=== PATIENT | female | born 1990 | race Caucasian/White ===

== ENCOUNTER 2019-02-19 09:55 | Emergency (ER) | payer OTHER ==
--- OUTSIDE RECORDS SUMMARY | 2019-02-19 10:07 | XMS REPORT | Continuity of Care Document ---
:1990 External Reference #:[id number] Author Name Deana Jones Care Team Providers Name Role Phone Toya Lovell MD Primary Care Physician Unavailable Payers Date Identification Numbers Payment Provider Subscriber Effective: 2016 Policy Number: [id number] [facility] Pam Qiu Expires: 2017 PayID: [id number] [address] [place] [address] Policy Number: [id number] Bradford Qiu Group Number: [id number] [address] PayID: [id number] [place] [address] Advance Directives Type Date Description Status Comment Other Directive 01/26/2017 health care proxy Current and Verified Problems Active Problems Provider Date Attention deficit hyperactivity disorder Cyndi Roth, N.P. Onset: 2011 Gastroesophageal reflux disease Cyndi Roth, N.P. 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 50mcg/Act needed Suspension Albenza 2 tablets po and 4tabs Cyndi Gutierrezradha, 05/02/2018 200mg Tablets repeat in 2 N.P. weeks Adderall XR one by mouth 30caps F90.9 Cyndi Gutierrezradha, 03/23/2018 30mg Caps daily N.P. ER 24HR Fluconazole one by mouth february 2tabs Cyndi Gutierrezradha, 02/07/2018 150mg repeat in 3 days N.P. Tablets as needed Orsythia take one tablet 3months Cyndi Ira, 03/18/2014 0.1-20mg-mcg by mouth daily N.P. Tablets History Medications Alesse-28 Take 1 Tablet By 84tabs Cyndi Ira, 12/12/2017 - Tablet Mouth Daily N.P. 02/03/2019 Loestrin 20 (21) Take one tablet by 21tabs Cyndi Ira, 12/21/2014 - mouth one time daily N.P. 10/23/2015 1-20mg-mcg Tablets Loestrin 20-21 one po daily 1tabs Cyndi Ira, 07/07/2013 - N.P. 03/18/2014 1-20mg-mcg Tablets Diflucan sig 1 po repeat in 3 2tabs 112.1 Lupe Tejeda, 09/30/2012 - 150mg Tablets days if needed M.D., FACP 10/24/2012 Ritalin one tablet bid 32tabs Cyndi Ira, 04/07/2012 - 20mg Tablets N.P. 07/26/2013 Ritalin LA 2 capsules daily on 16caps Lupe Tejeda, 04/05/2012 - 20mg Caps ER Wednesday and Wednesday M.D., FACP 04/07/2012 24HR Lotrisone apply externally 15gm 616.10 Lupe Tejeda, 10/20/2011 - 1-0.05% Cream bid-tid until M.D., FACP 10/24/2012 symptoms clear but not for greater than 2 weeks Diflucan sig 1 po repeat in 3 2tabs 112.1 Lupe Tejeda, 04/29/2011 - 150mg Tablets days if needed M.D., FACP 10/20/2011 Terazol 3 1 applicator 20gm Lupe Tejeda, 10/20/2010 - 0.8% Cream intravaginally cb Villeda, FACP 10/23/2010 for 3 nights Aviane Take One Tablet By 28tabs Cyndi Gutierrezradha, 10/02/2010 - 0.1-20mg-mcg Mouth Daily N.P. 07/07/2013 Tablets Ritalin 1 capsule daily 90caps Unknown - 20mg Caps ER 24HR 04/05/2012 Protonix 1 tablet 90tabs Unknown - 20mg Tablets DR 10/20/2011 Methylphenidate HCL ER 1 by mouth every day 90tabs Cyndi Ira, - code b N.P. 03/23/2018 54mg Tablets ER Nystop apply twice daily to 60gm Unknown - [id number] affected areas 10/24/2012 Powder Immunizations CPT Code Status Date Vaccine Lot # [id number] Given 07/31/2016 Influ Virus Vaccine, Quadrivalent, Split Virus, [place] [id number] [id number] Given 07/27/2014 Influenza Virus Vaccine, Quadrivalent, Split, [id number] Preservative Free 96250 Given 07/31/2013 Flu Vaccine Split Virus Preservative Free For [id number] Indiv 3Yr Older [id number] Given 07/29/2012 Fluzone Vaccine [id number] 64200 Given 07/27/2011 Influenza Virus 3Yrs & Over [id number] Given 10/20/2010 Influenza Virus 3Yrs & Over Vital Signs Date Vital Result Comment 02/03/2019 10:06am Height 62.75 inches 5'2.75" Weight 112.12 lb Heart Rate 93 /min BP Systolic 140 mmHg BP Diastolic 87 mmHg Body Temperature 98.7 F O2 % BldC Oximetry 96 % BMI (Body Mass Index) 20.0 kg/m2 03/23/2018 9:09am Height 62.75 inches 5'2.75" Weight 111.75 lb Heart Rate 110 /min BP Systolic 100 mmHg BP Diastolic 60 mmHg Body Temperature 97.4 F O2 % BldC Oximetry 99 % BMI (Body Mass Index) 20.0 kg/m2 12/24/2016 11:07am Height 62.75 inches 5'2.75" Weight 120.00 lb Heart Rate 84 /min BP Systolic Sitting 104 mmHg BP Diastolic Sitting 64 mmHg Body Temperature 97.9 F O2 % BldC Oximetry 97 % BMI (Body Mass Index) 21.4 kg/m2 10/16/2016 2:48pm Weight 119.00 lb Heart Rate 78 /min BP Systolic Sitting 118 mmHg BP Diastolic Sitting 70 mmHg Respiratory Rate 16 /min Body Temperature 98.6 F O2 % BldC Oximetry 99 % 10/23/2015 11:04am Height 62.75 inches 5'2.75" Weight 112.00 lb Heart Rate 69 /min BP Systolic Sitting 118 mmHg BP Diastolic Sitting 66 mmHg Body Temperature 98.1 F O2 % BldC Oximetry 98 % BMI (Body Mass Index) 20.0 kg/m2 10/08/2014 9:53am Height 62.75 inches 5'2.75" Weight 107.75 lb Heart Rate 90 /min BP Systolic Sitting 110 mmHg BP Diastolic Sitting 68 mmHg Body Temperature 98.6 F O2 % BldC Oximetry 97 % BMI (Body Mass Index) 19.2 kg/m2 12/25/2013 3:41pm Height 62.5 inches 5'2.50" Weight 105.75 lb Heart Rate 76 /min BP Systolic 98 mmHg BP Diastolic 68 mmHg Respiratory Rate 16 /min Body Temperature 98.7 F BMI (Body Mass Index) 19.0 kg/m2 10/24/2012 10:49am Height 62 inches 5'2" Weight 100.00 lb Heart Rate 68 /min BP Systolic Sitting 100 mmHg BP Diastolic Sitting 60 mmHg BMI (Body Mass Index) 18.3 kg/m2 09/30/2012 3:35pm Weight 105.00 lb Heart Rate 86 /min BP Systolic Sitting 112 mmHg BP Diastolic Sitting 60 mmHg Body Temperature 98.5 F 01/22/2012 9:07am Height 62.25 inches 5'2.25" Weight 108.50 lb Heart Rate 76 /min BP Systolic Sitting 102 mmHg BP Diastolic Sitting 64 mmHg BMI (Body Mass Index) 19.7 kg/m2 10/20/2011 8:55am Height 62.25 inches 5'2.25" Weight 108.00 lb Heart Rate 76 /min BP Systolic Sitting 98 mmHg BP Diastolic Sitting 68 mmHg BMI (Body Mass Index) 19.6 kg/m2 04/29/2011 9:45am Height 62.25 inches 5'2.25" Weight 104.00 lb Heart Rate 62 /min BP Systolic Sitting 90 mmHg BP Diastolic Sitting 64 mmHg Body Temperature 97.5 F BMI (Body Mass Index) 18.9 kg/m2 12/25/2010 10:38am Heart Rate 68 /min BP Systolic 118 mmHg BP Diastolic 62 mmHg Body Temperature 98.6 F 10/20/2010 10:10am Height 62.5 inches 5'2.50" Weight 95.00 lb Heart Rate 78 /min BP Systolic 110 mmHg BP Diastolic 76 mmHg BMI (Body Mass Index) 17.1 kg/m2 Results Test Date Facility Test Result H/L Range Note GC/Chlamydia 03/23/2018 [facility] Chlamydia Negative Negative Amplified Rna [address] [place] [address] [phone] Neisseria gonorrhoeae (GC) Rna Negative Negative Laboratory test 12/24/2016 [facility] Cytology SEE RESULT [address] [place] [address] [phone] Laboratory test 10/16/2016 [facility] TSH (Thyroid Stim 1.65 N 0.[address] Horm) mcIU/mL -5.6 [place] [address] [phone] Lipid Profile 10/04/2014 [facility] Triglycerides 90 mg/dL N 2, 3 (Trig/Chol/HDL) [address] [place] [address] [phone] Cholesterol 191 mg/dL N 4 HDL Cholesterol 63.1 mg/dL N 5 LDL Cholesterol 110 mg/dL N 6 Laboratory test 12/25/2013 [facility] Cytology RUN DATE: [address] 12/26/ <[place] [address] NOTE> [phone] GC/Chlamydia 12/25/2013 [facility] GC/Chlamydia (SEE NOTE) 8 Amplified Rna [address] [place] [address] [phone] GC/Chlamydia 10/24/2012 [facility] GC/Chlamydia (SEE NOTE) 9 Amplified Rna [address] [place] [address] [phone] Laboratory test 10/24/2012 [facility] Cytology RUN DATE: [address] 10/25/ <[place] [address] NOTE> [phone] Laboratory test 01/23/2012 [facility] Glucose 83 mg/dL 70- [address] [place] [address] [phone] Laboratory test 10/20/2011 [facility] Cytology [address] ---- <[place] [address] NOTE> [phone] 1 SEE RESULT BELOW Name: PAM QIU : [address]: Cyndi Roth NP Acct: [id number] Unit: [id number] AGE: 26 Location: [facility] Re12/24/16 SEX: F Status: REG REF SPEC: [id number] ANGELITA: 12/24/16-1243 [facility] DR: Cyndi Roth NP REQ: [id number] RECD: 12/24/166044 STATUS: SOUT _ ORDERED: IMAGE ANALYSIS COMMENTS: [id number] FINAL DIAGNOSIS Negative for Intraepithelial lesion or Malignancy A. Ectocervical/Endocervical Specimen Adequacy: Satisfactory of evaluation Transformation zone component identified Patient Information: HPV: Thin Layer Pap Test w/reflex to high risk HPV RNA testing when ASCUS Actual Specimen Date: 12/24/16 LMP If Unknown: 2 wks ago Spec Date if unknown: 2013 ?: N Post Menopausal?: N Hysterectomy?: N Previous Abnormal Pap Smears?:N Signed (signature on file) SELENE Goins (ASCP) 12/25 1317 This Pap test was evaluated with the assistance of the Friend Traveler[employer] Test Imaging System. Due to cytologic findings at the diesel truck technician microscope, comprehensive manual rescreening by a Set Up Mechanic Heading Machines may be required. The Pap Smear is a screening test designed to aid in the detection of premalignant and malignant conditions of the uterine cervix. It is not a diagnostic procedure and should not be used as the sole means of detecting cervical cancer. Both false- positive and false- negative reports do occur. Depending on your risk status, a Pap smear should be obtained and evaluated every 1-3 years. END OF REPORT * ML=Testing performed at Main Lab DEPARTMENT OF PATHOLOGY, [facility] [place], [place] [address] Darin Zavala M.D. Director [facility] # [id number] 2 PT IS FASTING 3 Desirable <150 Borderline high 150-199 High 200-499 Very High >500 4 Desirable <200 Borderline high 200-239 High >239 5 Low <40 Desirable: 40-60 High: >60 6 Desirable <100 Near Optimal 100-129 Borderline high 130-159 High 160-189 Very High >189 7 RUN DATE: 12/26/13 [facility] LAB LIVE PAGE 1 RUN TIME: 1251 [facility] [employer] [employer] [place], [place] [address] Specimen Inquiry Name: PAM QIU : [address]: Cyndi Roth NP Acct: [id number] Unit: [id number] AGE: 23 Location: [facility] Re12/25/13 SEX: F Status: REG REF SPEC: [id number] ANGELITA: 12/25/13-[address]: Cyndi Roth NP REQ: [id number] RECD: 12/25/13 STATUS: SOUT _ ORDERED: IMAGE ANALYSIS FINAL DIAGNOSIS Negative for Intraepithelial lesion or Malignancy A. Ectocervical/Endocervical Specimen Adequacy: Satisfactory of evaluation Transformation zone component identified Patient Information: HPV: Thin Layer Pap Test w/reflex to high risk HPV DNA testing when ASCUS Actual Specimen Date: 12/25/13 Last Menstrual Date: 12/18/13 Signed (signature on file) SELENE Goins (ASCP) 12/26 1251 This Pap test was evaluated with the assistance of the Friend Traveler[employer] Test Imaging System. Due to cytologic findings at the diesel truck technician microscope, comprehensive manual rescreening by a Set Up Mechanic Heading Machines may be required. The Pap Smear is a screening test designed to aid in the detection of premalignant and malignant conditions of the uterine cervix. It is not a diagnostic procedure and should not be used as the sole means of detecting cervical cancer. Both false- positive and false- negative reports do occur. Depending on your risk status, a Pap smear shoudl be obtained and evaluated every 1-3 years. END OF REPORT * ML=Testing performed at Main Lab DEPARTMENT OF PATHOLOGY, [facility] [place], [place] [address] Darin Zavala M.D. Director [facility] Permit #[id number] RUN DATE: 12/29/13 [facility] [place] [facility] LAB LIVE PAGE 1 RUN TIME: 1406 [facility] [place], [place] [address] Specimen Inquiry Name: PAM QIU : [address]: Cyndi Roth NP Acct: [id number] Unit: [id number] AGE: 23 Location: [facility] Re12/25/13 SEX: F Status: REG REF SPEC: [id number] ANGELITA: 12/25/13-[address]: Cyndi Roth NP REQ: [id number] RECD: 12/25/13 STATUS: COMP _ SOURCE: THIN SPDESC: ORDERED: GC/Chlam RNA QUERIES: Medent Number [id number] Procedure Result Verified Site Chlamydia Trachomatis RNA Final 12/29/13- 1406 ML NEGATIVE for Chlamydia trachomatis rRNA GC (N. gonorrhoeae) RNA Final 12/29/13- 1356 ML NEGATIVE for Neisseria gonorrhoeae rRNA A negative result does not preclude the presence of a C. trachomatis or N. gonorrhoeae infection because results are dependent on adequate specimen collection, absence of inhibitors, and sufficient rRNA to be detected. Test results may be affected by improper specimen collection, improper storage, technical error, or specimen mixup. Limitations of the Procedure: The Aptima Combo 2 Assay is not intended for the evaluation of suspected sexual abuse or for other medico-legal indications. For those patients for whom a false positive result may have adverse psychosocial impact, the CDC recommends retesting by a method using an alternate technology. Therapeutic failure or success cannot be determined with the Aptima Combo 2 Assay since nucleic acid may persist following appropriate antimicrobial therapy. Results from the Aptima Combo 2 Assay should be interpreted in conjunction with other laboratory and clinical data available to the clinican. CONTINUED ON NEXT PAGE * ML=Testing performed at [facility] Lab DEPARTMENT OF PATHOLOGY, [address] [place] [address] Darin Zavala M.D. Director [facility] Permit #[id number] RUN DATE: 12/29/13 [facility] [place] [facility] LAB LIVE PAGE 2 RUN TIME: [address] [place] [address] Specimen Inquiry Patient: PAM QIU [id number] (Continued) Specimen: [id number] Collected: 12/25/13 Received: 12/25/13 (Continued) Procedure Result Verified Site GC (N. gonorrhoeae) RNA Final (continued) 12/29/13- 1356 Performance characteristics for detecting C. trachomatis and N. gonorrhoeae are derived from high prevalence populations. Positive results in low prevalence populations should be interpreted carefully with the understanding that the likelihood of a false positive may be higher than a true positive. END OF REPORT * ML=Testing performed at Main Lab DEPARTMENT OF PATHOLOGY, [facility] [place], [place] [address] Darin Zavala M.D. Director [facility] Permit #[id number] RUN DATE: 10/28/12 [facility] [place] [facility] LAB LIVE PAGE 1 RUN TIME: 9078 [facility] [place], [place] [address] Specimen Inquiry Name: PAM QIU : [address]: Cyndi Roth Acct: [id number] Unit: [id number] AGE: 22 Location: [facility] Re10/24/12 SEX: F Status: REG REF SPEC: [id number] ANGELITA: 10/24/12-[address]: IraCyndi REQ: [id number] RECD: 10/24/12 STATUS: COMP _ SOURCE: [facility]: ORDERED: GC/Chlam RNA QUERIES: Medent Number [id number] Procedure Result Verified Site Chlamydia Trachomatis RNA Final 10/28/12- 1448 ML NEGATIVE for Chlamydia trachomatis rRNA GC (N. gonorrhoeae) RNA Final 10/28/12- 1448 ML NEGATIVE for Neisseria gonorrhoeae rRNA A negative result does not preclude the presence of a C. trachomatis or N. gonorrhoeae infection because results are dependent on adequate specimen collection, absence of inhibitors, and sufficient rRNA to be detected. Test results may be affected by improper specimen collection, improper storage, technical error, or specimen mixup. Limitations of the Procedure: The Aptima Combo 2 Assay is not intended for the evaluation of suspected sexual abuse or for other medico-legal indications. For those patients for whom a false positive result may have adverse psychosocial impact, the [facility] recommends retesting by a method using an alternate technology. Therapeutic failure or success cannot be determined with the Aptima Combo 2 Assay since nucleic acid may persist following appropriate antimicrobial therapy. Results from the Aptima Combo 2 Assay should be interpreted in conjunction with other laboratory and clinical data available to the clinican. CONTINUED ON NEXT PAGE * ML=Testing performed at Main Lab DEPARTMENT OF PATHOLOGY, [facility] [place], [place] [address] Darin Zavala M.D. Director [facility] Permit #[id number] RUN DATE: 10/28/12 [facility] [place] [facility] LAB LIVE PAGE 2 RUN TIME: [address] [place] [address] Specimen Inquiry Patient: PAM QIU [id number] (Continued) Specimen: [id number] Collected: 10/24/12-1253 Received: 10/24/12 (Continued) Procedure Result Verified Site GC (N. gonorrhoeae) RNA Final (continued) 10/28/12- 1448 Performance characteristics for detecting C. trachomatis and N. gonorrhoeae are derived from high prevalence populations. Positive results in low prevalence populations should be interpreted carefully with the understanding that the likelihood of a false positive may be higher than a true positive. END OF REPORT * ML=Testing performed at Main Lab DEPARTMENT OF PATHOLOGY, [facility] [place] [address] Darin Zavala M.D. Director [facility] Permit #[id number] RUN DATE: 10/25/12 [facility] [place] [facility] LAB LIVE PAGE 1 RUN TIME: 2346 [facility] [employer] [place], [place] [address] Specimen Inquiry Name: PAM QIU : [address]: Cyndi Roth Acct: [id number] Unit: [id number] AGE: 22 Location: [facility] Re10/24/12 SEX: F Status: REG REF SPEC: [id number] ANGELITA: 10/24/12-1254 [facility] DR: Cyndi Roth REQ: [id number] RECD: 10/25/12 STATUS: SOUT _ ORDERED: IMAGE ANALYSIS FINAL DIAGNOSIS Negative for Intraepithelial lesion or Malignancy A. Ectocervical/Endocervical Specimen Adequacy: Satisfactory of evaluation Transformation zone component identified Patient Information: HPV: Thin Layer Pap Test w/reflex to high risk HPV DNA testing when ASCUS Actual Specimen Date: 10/24/12 Last Menstrual Date: 09/23/12 Spec Date if unknown: 10/2011 Cautery: N IUD: N Lesion, grossly demonstrate: N ?: N Post Menopausal?: N Hysterectomy?: N Previous Abnormal Pap Smears?:N Signed (signature on file) SELENE Goins (ASCP) 10/25 9095 This Pap test was evaluated with the assistance of the HemaSourcep Test Imaging System. Due to cytologic findings at the diesel truck technician microscope, comprehensive manual rescreening by a Set Up Mechanic Heading Machines may be required. The Pap Smear is a screening test designed to aid in the detection of premalignant and malignant conditions of the uterine cervix. It is not a diagnostic procedure and should not be used as the sole means of detecting cervical cancer. Both false- positive and false- negative reports do occur. Depending on your risk status, a Pap smear shoudl be obtained and evaluated every 1-3 years. END OF REPORT * ML=Testing performed at Main Lab DEPARTMENT OF PATHOLOGY, [address] [place] [address] Darin Zavala M.D. Director [facility] Permit #[id number] ---- RUN DATE: 10/21/11 [facility] NMI LIVE PAGE 1 RUN TIME: 1032 Specimen Inquiry RUN USER: INTERFACE -- Name: TIFFANIE QIUSA Tomas Jolly#: [id number] Status: REG REF Re10/20/11 Age/Sex: 21/F Unit#: [id number] Location: [facility] : [birth year] -- Specimen: [id number] SOUT Spec Date: 10/20/[address]: Cyndi MCINTOSH Spec Type: CYTOLOGY Received: 10/20/11-1315 Copies to: SOURCE ECTOCERVICAL/ENDOCERVICAL Thin Prep with Reflex HPV Test PATIENT INFORMATION ACTUAL COLLECTION DATE: 10/20/11 ? No POST MENOPAUSAL? No HYSTERECTOMY? No PREVIOUS ABNORMAL PAP SMEARS No LAST MENSTRUAL PERIOD: 09/30/11 ADEQUACY OF SPECIMEN Satisfactory for evaluation * Transformation zone component identified * DIAGNOSIS NEGATIVE FOR INTRAEPITHELIAL LESION OR MALIGNANCY * This Pap test was evaluated with the assistance of the Friend TravelerPrep Pap Test Imaging System. The Pap Smear is a screening test designed to aid in the detection of premalign ant and malignant conditions of the uterine cervix. It is not a diagnostic procedure a nd should not be used as the sole means of detecting cervical cancer. Both false- positiv e and false-negative reports do occur. Depending on your risk status, a Pap smear rose uld be obtained and evaluated every one to three years. Final Interpretation electronically signed by: Geneva MELGOZA(ASC) 10/21/11 103 2 -- -- DEPARTMENT OF PATHOLOGY, [address] [place] [address] [facility] Permit #[id number] Darin Zavala M.D. Director Janeen Torrez M.D. Associate Professor Of Biology Dir marva -- Procedures Date Code Description Status 05/30/2014 733323846 Diabetic Retinal Eye Exam Completed 10/24/2012 96523 EKG Tracing & Interpretation Completed Encounters Type Date Location Provider Dx Diagnosis Office Visit 03/23/2018 [facility] Cyndi Roth, Z00.00 Encntr for general 9:20a Medicine N.P. adult medical exam w/o abnormal findings F90.9 Attention-deficit hyperactivity disorder, unspecified type Z11.3 Encntr screen for infections w sexl mode of transmiss B37.3 Candidiasis of vulva and vagina Office Visit 12/24/2016 11:00a [facility] Cyndi Roth Z00.00 Encntr for Medicine N.P. general adult medical exam w/o abnormal findings F90.9 Attention-deficit hyperactivity disorder, unspecified type Z12.4 Encounter for screening for malignant neoplasm of cervix Office Visit 10/16/2016 2:40p [facility] Cyndi Roth, R10.30 Lower abdominal Medicine N.P. pain, unspecified N93.8 Other specified abnormal uterine and vaginal bleeding Office Visit 10/23/2015 11:00a [facility] Aydin Cardoso NP Z00.00 Encntr for Medicine general adult medical exam w/o abnormal findings F90.9 Attention-deficit hyperactivity disorder, unspecified type Office Visit 10/08/2014 10:00a [facility] Leti Cardoso V70.0 Examination General Medicine [employer] OFFICER Medical Routine AT Health Care Facility 314.01 Attention Deficit Disorder W/ Hyperactivity Office Visit 12/25/2013 3:20p [facility] Leti Roth V70.0 Examination Medicine N.P. General Medical Routine AT Health Care Facility V72.31 Routine Event Management Consultant Examination 314.01 Attention Deficit Disorder W/ Hyperactivity Office Visit 10/24/2012 10:40a [facility] Leti Roth V70.0 Examination Medicine N.P. General Medical Routine AT Health Care Facility V72.31 Routine Event Management Consultant Examination 314.01 Attention Deficit Disorder W/ Hyperactivity Office Visit 09/30/2012 [facility] Sonia Cardozo, 112.1 Candidiasis The 3:30p Medicine N.P. Vulva & Vagina Office Visit 01/22/2012 [facility] Cyndi Roth, 616.10 Vaginitis & 9:00a Medicine N.P. Vulvovaginitis Unspec Office Visit 10/20/2011 [facility] Cyndi Roth, V70.0 Examination General 9:00a Medicine N.P. Medical Routine AT [facility] V72.31 Routine Event Management Consultant Examination 314.01 Attention Deficit Disorder W/ Hyperactivity 530.81 Esophageal Reflux 616.10 Vaginitis & Vulvovaginitis Unspec Office Visit 04/29/2011 DO Not Use Cyndi 112.1 Candidiasis The 9:40a Hardik-Emily Roth, N.P. Vulva & Vagina Office Visit 12/25/2010 DO Not Use Lupe Tejeda, 616.10 Vaginitis & 10:30a Escobar Villeda, FACP Vulvovaginitis Unspec Office Visit 10/20/2010 DO Not Use Cyndi V72.31 Routine Event Management Consultant 10:15a Hardik-Emily Roth, N.P. Examination V04.81 Need For Prophylactic Vaccination & Inoculation/Influenza Office Visit 10/07/2009 DO Not Use Cyndi Roth, V72.31 Routine Event Management Consultant 11:00a Hardik-Emily N.P. Examination Plan of Treatment 02/03/2019 - Cyndi Roth, N.P.H92.02 Otalgia, left earNew Medication: Fluticasone Propionate 50 mcg/Act - 2 sprays each nostril daily as neededComments:You have eustachian tube dysfunction: I have prescribed a steroid nasal spray, Fluticasone. Use 2 inhalations in each nostril, once daily until you feel better. If after 2 weeks your symptoms do not resolve, please contact the office and I will generate a referral to an ENT specialist.G44.209 Tension-type headache, unspecified, not intractableComments:You have a tension type headache. I suggest you a ply heat to your neck and try and relax your neck and upper back. You may find taking Ibuprofen helpful.
--- NOTE | 2019-02-19 10:46 | UC ---
Cardiac HPI - HPI Summary HPI Summary: 28-year-old woman comes in with a chief complaint of chest pain. Started about 5:30 this morning when she was in bed of sudden onset. It's sternal. No radiation. Pain is worse with laying down or standing up. Denies any abdominal pain. No nausea. Patient reports she often has sweaty hands and feet. No shortness of breath. Patient reports that last evening when she went to bed her heart was racing. She feels like she did not sleep all night long because her heart racing. No history of pulmonary embolus or deep venous thrombosis. No recent travel no recent surgeries. She is on control pills. No complaint of pedal edema or calf pain. For about 3 weeks patient's been having for about 3 weeks patient's been having ear pain and headaches she's seeing an ENT for this and considering imaging. - History of Current Complaint Chief Complaint: UCChestPain Stated Complaint: HEART RACING Time Seen by Provider: 02/19/19 10:17 Hx Last Menstrual Period: 02/12/19 Pain Intensity: 7 - Allergy/Home Medications Allergies/Adverse Reactions: Allergies Allergy/AdvReac Type Severity Reaction Status Date / Time No Known Allergies Allergy Verified 02/19/19 10:03 Home Medications: Home Medications Control 1 tab PO DAILY 02/19/19 [History] Dextroamphetamine/Amphetamine [Adderall 30 mg-] 1 tab PO DAILY 02/19/19 [ History Confirmed 02/19/19] Ibuprofen TAB* [Advil TAB*] 200 mg PO Q6H PRN 02/19/19 [History Confirmed ] Loratadine 10 mg PO DAILY 02/19/19 [History Confirmed 02/19/19] PMH/Surg Hx/FS Hx/Imm Hx Previously Healthy: Yes Other Psychological History: ADHD - Surgical History Surgical History: None - Family History Known Family History: Positive: Non-Contributory - Social History Alcohol Use: Daily Alcohol Amount: 1 glass of wine with dinner Substance Use Type: None Smoking Status (MU): Never Smoked Tobacco Review of Systems All Other Systems Reviewed And Are Negative: Yes Constitutional: Positive: Other - ANXIETY Skin: Positive: Negative Eyes: Positive: Negative ENT: Positive: Ear Ache - SEE HPI Respiratory: Positive: Negative Cardiovascular: Positive: Palpitations, Chest Pain Gastrointestinal: Positive: Negative Motor: Positive: Negative Neurovascular: Positive: Negative Musculoskeletal: Positive: Negative. Negative: Calf Tenderness Neurological: Positive: Headache Psychological: Positive: Anxious Is Patient Immunocompromised?: No Physical Exam Triage Information Reviewed: Yes Appearance: Well-Appearing, No Pain Distress, Well-Nourished, Other: - ANXIOUS Vital Signs: Initial Vital Signs Temp 98.6 F 02/19/19 10:06 Pulse 83 02/19/19 10:06 Resp 18 02/19/19 10:06 BP 137/92 02/19/19 10:06 Pulse Ox 97 02/19/19 10:06 Vital Signs Reviewed: Yes Eye Exam: Normal Eyes: Positive: Conjunctiva Clear Neck: Positive: Supple Respiratory: Positive: Lungs clear, Normal breath sounds, No respiratory distress, Other: - STERNUM TENDER TO PALPATION Cardiovascular: Positive: RRR Abdomen Description: Positive: Nontender, Soft Musculoskeletal Exam: Normal Musculoskeletal: Positive: Strength Intact, ROM Intact, No Edema, Other: - NO CALF TENDERNESS TO PALPATION Neurological: Positive: Alert, Muscle Tone Normal Psychological: Positive: Age Appropriate Behavior, Other: - ANXIOUS Skin Exam: Normal - Assessment/Plan Course Of Treatment: We discussed the EKG results with the patient and her mother. I do not see any signs of ischemia or ectopy. Rate was 82 beats for minute. Overall vital signs normal. Given her age EKG it's unlikely that it's a cardiac cause although we cannot rule out pericarditis. Also low risk for pulmonary embolism however we are unable to rule that out. We discussed further evaluation in the emergency department. Patient prefers further evaluation in the emergency department and is going over by POV. - Clinical Impression Provider Diagnosis: Chest pain, Palpitations Discharge - Sign-Out/Discharge Documenting (check all that apply): Patient Departure All imaging exams completed and their final reports reviewed: No Studies - Discharge Plan Condition: Stable Disposition: HOME-RECOMMEND TO ED Referrals: Toya Lovell MD [Primary Care Provider] - Additional Instructions: GO DIRECTLY TO THE EMERGENCY DEPARTMENT FOR FURTHER EVALUATION. - Billing Disposition and Condition Condition: STABLE Disposition: Home-Recommend to ED
[2019-02-19 10:57] VITALS: BP 122/79
== END 2019-02-19 10:57 | disposition home health service (06) ==
LOC: UCEAST 09:55
DX: R07.89 Other chest pain (principal); R00.2 Palpitations; F90.9 Attention-deficit hyperactivity disorder, unspecified type; Z79.3 Long term (current) use of hormonal contraceptives
CPT/HCPCS: 99212; G0463

== ENCOUNTER 2019-02-19 11:11 | Emergency (ER) | payer OTHER ==
--- NOTE | 2019-02-19 11:30 | ED ---
HPI Chest Pain - HPI Summary HPI Summary: This patient is a 28 year old Female presenting to [facility] with a chief complaint of chest pain since 6 hours ago. The patient reports this started with palpitations when she tried to go to sleep last night which then progressed to chest pain after she attempted breathing exercises, which did not help. She states it then felt like "someone punched her' in the mid-sternal area. The patient states she never went to sleep. She states she initially rates her pain 8/10 in severity and describes it as a sharp pain but the pain has now resolved to a 3/10 since one hour ago. She states the pain radiates slightly to her lower -sternal area. She denies SOB, N/V/D, Cardiac Hx. She states she has been coughing due to a sinus infection. She saw an ENT specialist for this and the ENT stated to wait a week before getting a CXR. Her last LNMP was last week. The patient does not smoke. She has a family Hx of HLN and HLD. - History of Current Complaint Chief Complaint: EDChestPainROMI Time Seen by Provider: 02/19/19 11:21 Hx Obtained From: Patient Hx Last Menstrual Period: 02/12/19 Onset/Duration: Started Hours Ago Timing: Constant Initial Severity: Severe Current Severity: Mild Pain Intensity: 3 Pain Scale Used: 0-10 Numeric Chest Pain Location: Mid Sternal, Lower Sternal Chest Pain Radiates: Yes Character: Sharp/Stabbing - Allergy/Home Medications Allergies/Adverse Reactions: Allergies Allergy/AdvReac Type Severity Reaction Status Date / Time No Known Allergies Allergy Verified 02/19/19 11:13 PMH/Surg Hx/FS Hx/Imm Hx Endocrine/Hematology History: Denies: Hx Blood Disorders Cardiovascular History: Denies: Hx Hypertension Infectious Disease History: No Infectious Disease History: Denies: Traveled Outside the [place] in Last 30 Days - Family History Known Family History: Positive: Hypertension, Other - HLD - Social History Alcohol Use: Daily Alcohol Amount: 1 glass of wine with dinner Substance Use Type: Reports: None Smoking Status (MU): Never Smoked Tobacco Review of Systems Positive: Palpitations, Chest Pain Positive: Cough. Negative: Shortness Of Breath Negative: Vomiting, Diarrhea, Nausea All Other Systems Reviewed And Are Negative: Yes Physical Exam - Summary Physical Exam Summary: VITAL SIGNS: Reviewed. GENERAL: Patient is a well-developed and nourished FEMALE who is lying comfortable in the stretcher. Patient is not in any acute respiratory distress. HEAD AND FACE: No signs of trauma. No ecchymosis, hematomas or skull depressions. No sinus tenderness. EYES: PERRLA, EOMI x 2, No injected conjunctiva, no nystagmus. EARS: Hearing grossly intact. Ear canals and tympanic membranes are within normal limits. MOUTH: Oropharynx within normal limits. NECK: Supple, trachea is midline, no adenopathy, no JVD, no carotid bruit, no c- spine tenderness, neck with full ROM. CHEST: Symmetric, reproducible tenderness. LUNGS: Clear to auscultation bilaterally. No wheezing or crackles. CVS: Regular rate and rhythm, S1 and S2 present, no murmurs or gallops appreciated. ABDOMEN: Soft, non-tender. No signs of distention. No rebound no guarding, and no masses palpated. Bowel sounds are normal. EXTREMITIES: FROM in all major joints, no edema, no cyanosis or clubbing. NEURO: Alert and oriented x 3. No acute neurological deficits. Speech is normal and follows commands. SKIN: Dry and warm Triage Information Reviewed: Yes Vital Signs On Initial Exam: Initial Vitals Temp Pulse Resp BP Pulse Ox 97.1 F 78 18 116/94 99 02/19/19 11:13 02/19/19 11:13 02/19/19 11:13 02/19/19 11:13 02/19/19 11:13 Vital Signs Reviewed: Yes Diagnostics - Vital Signs Vital Signs Temp Pulse Resp BP Pulse Ox 02/19/19 11:13 97.1 F 78 18 116/94 99 - Laboratory Result Diagrams: 02/19/19 11:36 02/19/19 11:36 Lab Statement: Any lab studies that have been ordered have been reviewed, and results considered in the medical decision making process. - Radiology CXR Radiology Interpretation Completed By: Radiologist Summary of Radiographic Findings: No radiographic evidence for acute cardiopulmonary disease. ED Provider has reviewed this report. - EKG 1141 Cardiac Rate: NL - [address] Segment: Normal Ectopy: None Summary of EKG Findings: No ST-Elevations, Normal [place]. Re-Evaluation - Re-Evaluation First Eval Re-Evaluation Time: 14:04 Comment: Discussed results and plan for discharge with patient. Chest Pain Course/Dx - Course Assessment/Plan: This patient is a 20-year-old female who presents to the emergency department with a chief complaint of having chest pain. She reports that this morning she woke up with severe chest pain in the center of the chest which she was approximately 8 out of 10. She reports that the pain is as if someone punched her in his chest. The pain has improved to approximately 5 out of 10. She reports that the pain is increased after palpation. She has no history of cardiac muscular disease, denies any hypertension diabetes or high cholesterol. She denies any nausea vomiting dizziness or diaphoresis. The patient was placed in a cardiac sonographer, IV access was obtained. EKG normal sinus rhythm without any ST elevations. Has a normal axis. Blood test results without any significant abnormality. First troponin is 0.00, beta hCG is negative. Chest x-ray impression: No radiographic evidence for acute cardiopulmonary disease. In the ED course the patient was given Toradol for the pain. D-dimer is also less than 200 therefore I have no suspicion for pulmonary embolism. The heart score is equal to 1 therefore at very low suspicion for acute coronary syndrome. The patient also has had a productive chest pain at palpation and she has history of sinusitis therefore I believe that the patient may have a noncardiac chest pain. Therefore the patient will be discharged home with follow-up with primary care physician. The patient is hemodynamically stable alert and oriented 3. Patient reports that all symptoms have resolved. Because the patient has no significant comorbidities and no family history of cardiovascular disease at his age the patient will be discharged home with follow up of PMD. I discussed all the findings and test results with the patient. Patient was instructed to return to the emergency room immediately if any of the symptoms return or worsens. Patient understands and agrees. Plan of care was discussed with the patient and patient understands and agrees. All questions were answered at patient satisfaction. There were no further complaints or concerns. PE before discharge: CVS: S1 and S2 present. No murmurs appreciated. Abdominal exam before discharge: Soft, non- tender. No signs of distention. No rebound no guarding, and no masses palpated. Bowel sounds are normal. Patient is alert and oriented x 3. Patient is hemodynamically stable. - Chest Pain Differential Diagnosis/HQI/PQRI: Acute [place], ACS, Angina, CHF, Chest Wall, GI Disease, Lower Respiratory Infection - Diagnoses Provider Diagnoses: Atypical chest pain Discharge - Sign-Out/Discharge Documenting (check all that apply): Patient Departure - Discharge Patient Received Moderate/Deep Sedation with Procedure: No - Discharge Plan Condition: Stable Disposition: HOME Patient Education Materials: Chest Pain (ED) Referrals: Cyndi Roth NP [Primary Care Provider] - 3 Days Additional Instructions: Return to ED with any new or worsening symptoms. - Billing Disposition and Condition Condition: STABLE Disposition: Home - Attestation Statements Document Initiated by Damion: Yes Documenting Scribe: Duncan Ahuja Provider For Whom Damion is Documenting (Include Credential): Forrest Duenas MD Scribe Attestation: Duncan Her scribed for Forrest Duenas MD on 02/19/19 at 2059. Scribe Documentation Reviewed: Yes Provider Attestation: The documentation as recorded by the Duncan wilkes accurately reflects the service I personally performed and the decisions made by , Forrest Duenas MD Status of Scribe Document: Viewed
[2019-02-19 12:17] LABS: ABS Eosinophils 0.1 10^3/ul (0-0.6); ABS Lymphocytes 1.1 10^3/ul (1.0-4.8); ABS Monocytes 0.3 10^3/ul (0-0.8); ABS Neutrophils 2.6 10^3/ul (1.5-7.7); Eosinophil % 1.8 %; Hematocrit 43 % (35-47); Hemoglobin 15.1 g/dL (12.0-16.0); Mean Corpuscular HGB Conc 35 g/dL (31-36); Mean Corpuscular Hemoglobin 34 pg (27-31); Mean Corpuscular Volume 98 fL (80-97); Mean Platelet Volume 7.3 fL (7.4-10.4); Nucleated Red Blood Cells % 0.1; Platelet Count 250 10^3/uL (150-450); Red Blood Count 4.44 10^6 /uL (3.70-4.87); Red Cell Distribution Width 12 % (10.5-15); White Blood Count 4.1 10^3/uL (3.5-10.8)
[2019-02-19 12:29] LABS: ALT 18 U/L (7-52); AST 22 U/L (13-39); Albumin 4.6 g/dL (3.2-5.2); Albumin/Globulin Ratio 1.6 (1-3); Alkaline Phosphatase 46 U/L (34-104); Anion Gap 8 mmol/L (2-11); BUN/Creatinine Ratio 11.1 (8-20); Blood Urea Nitrogen 10 mg/dL (6-24); CO2 Carbon Dioxide 24 mmol/L (22-32); Calcium 9.6 mg/dL (8.6-10.3); Chloride 106 mmol/L (101-111); Creatine Kinase 130 U/L (10-223); EGFR African American 90.2 (>60); EGFR Non-African American 74.6 (>60); Globulin 2.9 g/dL (2-4); Glucose 98 mg/dL (70-100); Potassium 3.9 mmol/L (3.5-5.0); Sodium 138 mmol/L (135-145); Total Protein 7.5 g/dL (6.4-8.9)
[2019-02-19 12:37] LABS: HCG Pregnancy < 0.60 mIU/mL
[2019-02-19] MEDS ORDERED: Ketorolac INJ* 30 MG/ML 1 ML VIAL IV PUSH ONE (12:45)
[2019-02-19 12:59] LABS: Digoxin < 0.3 ng/ml (0.8-2.0)
[2019-02-19 13:14] LABS: TSH (Thyroid Stimulating Horm) 1.77 mcIU/mL (0.34-5.60)
[2019-02-19 14:56] VITALS: BP 132/78
== END 2019-02-19 15:03 | disposition home or self-care (01) ==
LOC: ED 11:11
DX: R07.89 Other chest pain (principal); Z79.899 Other long term (current) drug therapy
CPT/HCPCS: 36415; 71046; 80053; 80162; 82550; 82553; 83605; 83880; 84443; 84484; 84702; 85025; 85379; 93005; 96374; 99283; J1885

== ENCOUNTER 2019-07-15 09:41 | Emergency (ER) | payer OTHER ==
--- OUTSIDE RECORDS SUMMARY | 2019-07-15 09:47 | XMS REPORT | Continuity of Care Document ---
:1990 External Reference #:[id number] Author Name Jovanna Dejesus NP (transmitted by agent of provider Abigail Medrano) Address [address] [place] [address] Care Team Providers Name Role Phone Cyndi Roth NP - Family Care Team Information Temple Marker [phone] Lupe Tejeda MD - Internal Medicine Care Team Information Temple Marker [phone] Problems Active Problems Provider Date Attention deficit hyperactivity disorder Cyndi Roth, N.PJaxon Onset: 2011 Gastroesophageal reflux disease Cyndi Roth N.PJaxon Onset: 10/20/2011 Social History Type Date Description Comments Sex Unknown ETOH Use Currently consumes 1 - 3 every other alcohol day Tobacco Use Start: Unknown Patient has never smoked Recreational Drug Use Denies Drug Use Smoking Status Reviewed: 07/10/19 Patient has never smoked Exercise Type/Frequency Exercises regularly 2 - 7 days weekly Allergies, Adverse Reactions, Alerts Active Allergies Reaction Severity Comments Date Ketorolac Tromethamine dizziness and pale 06/12/2019 Inactive Allergies No Known Drug Allergy 10/14/2010 Medications Active Medications SIG Qnty Indications Ordering Date Provider Omeprazole 1 by mouth 90caps Jovanna Dejesus NP 06/12/[address] every day Methylphenidate take 1 a day 30tabs F90.9 Aydin Cardoso NP 03/20/2019 Hydrochloride ER in the am 36mg Tablets ER Orsythia take one 3months Aydin Cardoso NP 03/18/2014 0.1-20mg-mcg Tablets tablet by mouth daily History Medications Fluconazole one by mouth 2tabs Cyndi Roth 05/09/2019 - 150mg Tablets may repeat in 3 N.P. 02/10/2019 days as needed Methylphenidate one by mouth 30tabs F90.9 Edna Kraft MD 03/20/2019 - Hydrochloride ER daily 03/20/2019 54mg Tablets ER Fluticasone Propionate 2 sprays each 48gm H92.02 Cyndi Roth, 2018 - nostril daily N.P. 03/31/2019 50mcg/Act Suspension as needed Immunizations CPT Code Status Date Vaccine Lot # [id number] Given 07/01/2019 Influenza Virus Vaccine, Quadrivalent, Split, Preservative Free 51234 Given 07/31/2016 Influ Virus Vaccine, Quadrivalent, Split Virus, [id number] [address] Given 07/27/2014 Influenza Virus Vaccine, Quadrivalent, Split, [id number] Preservative Free 96433 Given 07/31/2013 Flu Vaccine Split Virus Preservative Free For [id number] Indiv 3Yr Older [id number] Given 07/29/2012 Fluzone Vaccine [id number] 98379 Given 07/27/2011 Influenza Virus 3Yrs & Over [id number] 10302 Given 10/20/2010 Influenza Virus 3Yrs & Over Vital Signs Date Vital Result Comment 07/10/2019 9:26am Height 62.75 inches 5'2.75" Weight 115.00 lb Heart Rate 106 /min BP Systolic 113 mmHg BP Diastolic 70 mmHg O2 % BldC Oximetry 98 % BMI (Body Mass Index) 20.5 kg/m2 06/12/2019 9:29am Height 62.75 inches 5'2.75" Weight 112.00 lb Heart Rate 86 /min BP Systolic 114 mmHg BP Diastolic 80 mmHg O2 % BldC Oximetry 99 % BMI (Body Mass Index) 20.0 kg/m2 Results Test Date Facility Test Result H/L Range Note Laboratory test [facility] Magnesium 2.3 mg/dL Normal 1.9-2.7 finding [address] [place] [address] [phone] Laboratory test [facility] D Dimer < 200 Normal Less Than 1 finding [address] Quantitative ng/mL [address] [place] [address] [phone] Troponin-I (TnI) 0.00 ng/mL <0.04 2 CBC Auto 02/19/2019 [facility] White Blood 4.1 10^3/uL Normal 3.5-10.[address] [place] [address] [phone] Red Blood Count 4.44 10^6/uL Normal 3.70-4.87 Hemoglobin 15.1 g/dL Normal 12.0-16.0 Hematocrit 43 % Normal 35-47 Mean Corpuscular Volume 98 fL High 80-97 Mean Corpuscular Hemoglobin 34 pg High 27-31 Mean Corpuscular HGB Conc 35 g/dL Normal 31-36 Red Cell Distribution Width 12 % Normal 10.5-15 Platelet Count 250 10^3/uL Normal 150-450 Mean Platelet Volume 7.3 fL Low 7.4-10.4 Abs Neutrophils 2.6 10^3/uL Normal 1.5-7.7 Abs Lymphocytes 1.1 10^3/uL Normal 1.0-4.8 Abs Monocytes 0.3 10^3/uL Normal 0-0.8 Abs Eosinophils 0.1 10^3/uL Normal 0-0.6 Abs Basophils 0.0 10^3/uL Normal 0-0.2 Abs Nucleated RBC 0.0 10^3/uL Granulocyte % 62.6 % Lymphocyte % 27.0 % Monocyte % 8.1 % Eosinophil % 1.8 % Basophil % 0.5 % Nucleated Red Blood Cells % 0.1 Laboratory test 02/19/2019 [facility] Lactic Acid 0.9 mmol/L Normal 0.5-2.0 3 finding [address] [place] [address] [phone] B-Type Natriuretic Peptide BNP 33 pg/mL <=100 Comp Metabolic 02/19/2019 [facility] Sodium 138 mmol/L Normal 135-[address] [place] [address] [phone] Potassium 3.9 mmol/L Normal 3.5-5.0 Chloride 106 mmol/L Normal 101-111 Co2 Carbon Dioxide 24 mmol/L Normal 22-32 Anion Gap 8 mmol/L Normal 2-11 Glucose 98 mg/dL Normal 70-100 Blood Urea Nitrogen 10 mg/dL Normal 6-24 Creatinine 0.90 mg/dL Normal 0.51-0.95 BUN/Creatinine Ratio 11.1 Normal 8-20 Calcium 9.6 mg/dL Normal 8.6-10.3 Total Protein 7.5 g/dL Normal 6.4-8.9 Albumin 4.6 g/dL Normal 3.2-5.2 Globulin 2.9 g/dL Normal 2-4 Albumin/Globulin Ratio 1.6 Normal 1-3 Total Bilirubin 0.50 mg/dL Normal 0.2-1.0 Alkaline Phosphatase 46 U/L Normal 34-104 Alt 18 U/L Normal 7-52 Ast 22 U/L Normal 13-39 Egfr Non- 74.6 >60 Egfr 90.2 >60 4 Laboratory test 02/19/2019 [facility] Creatine 130 U/L Normal 10-[address] Kinase(CK) [place] [address] [phone] Troponin-I (TnI) 0.00 ng/mL <0.04 5 CKMB 02/19/2019 [facility] CKMB ng/mL 1.0 ng/mL Normal 0.6- 6.[address] [place] [address] [phone] Laboratory test 02/19/2019 [facility] HCG < 0.60 [address] mIU/[place] [address] [phone] Digoxin < 0.3 ng/ml Low 0.8-2.0 TSH (Thyroid Stim Horm) 1.77 mcIU/mL Normal 0.34-5.60 1 Please note: The following may produce a false positive D Dimer test: - Rheumatoid factor greater than 60 IU/ml - Plasma hemoglobin greater than 0.05 gm/dl - Bilirubin greater than 50 mg/dl - Lipids greater than 1000 mg/dl - FDP greater than 20 ug/ml 2 Troponin-I testing on Plasma Separator Tubes (PST) has a known false positive rate of 0.20-0.40%. All positive troponins reflex immediately to secondary confirmatory testing. Using the [employer] DxI 800 Access Immunoassay systems, the 99th percentile upper reference limit was demonstrated to be < 0.03 ng/mL. 3 [facility] Severe Sepsis and Septic Shock Management Bundle Measure requires all lactic acids initially measuring >2.0 mmol/L be repeated. 4 Because ethnic data is not always readily available, this report includes an eGFR for both -Americans and non- Americans. The National Kidney Disease Education Program (NKDEP) does not endorse the use of the MDRD equation for patients that are not between the ages of 18 and 70, are , have extremes of body size, muscle mass, or nutritional status, or are non- or non-. According to the National Kidney Foundation, irrespective of diagnosis, the stage of the disease is based on the level of kidney function: Stage Description GFR(mL/min/1.73 m(2)) 1 Kidney damage with normal or decreased GFR 90 2 Kidney damage with mild decrease in GFR 60-89 3 Moderate decrease in GFR 30-59 4 Severe decrease in GFR 15-29 5 Kidney failure <15 (or dialysis) 5 Troponin-I testing on Plasma Separator Tubes (PST) has a known false positive rate of 0.20-0.40%. All positive troponins reflex immediately to secondary confirmatory testing. Using the [employer] DxI 800 Access Immunoassay systems, the 99th percentile upper reference limit was demonstrated to be < 0.03 ng/mL. 6 <5.0 Negative 5.0 - 25.0 Indeterminate (Repeat testing recommended after 72 hours) >25.0 Positive Perimenopausal women can display HCG levels of up to 20 mIU/mL Procedures Date Code Description Status 05/30/2014 [id number] Diabetic Retinal Eye Exam Completed Medical Devices Description No Information Available Encounters Type Date Location Provider Dx Diagnosis Office Visit 06/12/2019 [facility] Gastroenterology Jovanna Dejesus, K21.9 Gastro- esophageal 9:15a IMAGING TECHNOLOGIST reflux disease without esophagitis R10.13 Epigastric pain Office Visit 05/17/2019 3:40p [facility] Internal Theo Gomez, G44.209 Tension -type Medicine - METROLOGY TECHNICIAN headache, Ccmob unspecified, not intractable R11.0 Nausea F90.9 Attention-deficit hyperactivity disorder, unspecified type Office Visit 05/03/2019 2:00p [facility] Internal Theo Gomez, G44.209 Tension -type Medicine - METROLOGY TECHNICIAN headache, Ccmob unspecified, not intractable R11.0 Nausea F90.9 Attention-deficit hyperactivity disorder, unspecified type Office Visit 03/31/2019 10:40a [facility] Internal Cyndi Roth M94.0 Chondrocostal Medicine - N.P. junction syndrome Ccmob [Tietze] M54.6 Pain in thoracic spine Office Visit 03/07/2019 11:40a [facility] Internal Medicine Cyndi Roth, N.P. R51 Headache - Ccmob M94.0 Chondrocostal junction syndrome [Tietze] Office Visit 02/03/2019 10:00a [facility] Internal Cyndi Roth, H92.02 Otalgia , left Medicine - Ccmob N.P. ear G44.209 Tension-type headache, unspecified, not intractable Assessments Date Code Description Provider 06/12/2019 K21.9 Gastro-esophageal reflux disease without Jovanna Dejesus NP esophagitis 06/12/2019 R10.13 Epigastric pain Jovanna Dejesus NP 05/17/2019 G44.209 Tension-type headache, unspecified, not Zsofia Jason, METROLOGY TECHNICIAN intractable 05/17/2019 R11.0 Nausea Zsofia Jason, METROLOGY TECHNICIAN 05/17/2019 F90.9 Attention-deficit hyperactivity disorder, Zsofia Jason, METROLOGY TECHNICIAN unspecified type 05/03/2019 G44.209 Tension-type headache, unspecified, not Zsofia Jason, METROLOGY TECHNICIAN intractable 05/03/2019 R11.0 Nausea Zsofia Jason, METROLOGY TECHNICIAN 05/03/2019 F90.9 Attention-deficit hyperactivity disorder, Zsofia Jason, METROLOGY TECHNICIAN unspecified type 03/31/2019 M94.0 Chondrocostal junction syndrome [Tietze] Cyndi Ira, N.P. 03/31/2019 M54.6 Pain in thoracic spine Cyndi Roth, N.P. 03/07/2019 R51 Headache Cyndi Gutierrezn, N.P. 03/07/2019 M94.0 Chondrocostal junction syndrome [Tietze] Cyndi Gutierrezn, N.P. 02/03/2019 H92.02 Otalgia, left ear Cyndi Gutierrezn, N.P. 02/03/2019 G44.209 Tension-type headache, unspecified, not Cyndi Varn, N.P. intractable Plan of Treatment Future Appointment(s):07/31/2019 9:00 am - Nicholas Al MD at [facility] Gastroenterology Functional Status Description No Information Available Mental Status Description No Information Available Referrals Refer to Reason for Referral Status Appt Date Dejesus, Jovanna, IMAGING TECHNOLOGIST Patient with recurring abdominal pain desires to Sent see GI specialist. Referred for evaluation and treatment. Thank you for seeing this pleasant patient. [address] [place] [address] [phone] Anne Farah, DO Patient with costochondritis, left ear pain, and Sent headaches. Referred for evaluation and treatment. Called referral office, no appt made 06/28 [address] [facility] [address] [place], [place] [id number] [phone]
--- OUTSIDE RECORDS SUMMARY | 2019-07-15 09:47 | XMS REPORT | Continuity of Care Document ---
:1990 External Reference #:[id number] Author Name Jovanna Dejesus NP (transmitted by agent of provider Ramana Silva) Address [address] [place] [address] Care Team Providers Name Role Phone Cyndi Roth NP - Family Care Team Information Dramatic Coach [phone] Lupe Tejeda MD - Internal Medicine Care Team Information Dramatic Coach [phone] Problems Active Problems Provider Date Attention deficit hyperactivity disorder Cyndi Roth, N.P. Onset: 2011 Gastroesophageal reflux disease Cyndi Roth, N.P. Onset: 10/20/2011 Social History Type Date Description Comments Sex Unknown ETOH Use Currently consumes 1 - 3 every other alcohol day Tobacco Use Start: Unknown Patient has never smoked Recreational Drug Use Denies Drug Use Smoking Status Reviewed: 06/12/19 Patient has never smoked Exercise Type/Frequency Exercises regularly 2 - 7 days weekly Allergies, Adverse Reactions, Alerts Active Allergies Reaction Severity Comments Date No Known Drug Allergy 10/14/2010 Medications Active Medications SIG Qnty Indications Ordering Date Provider Methylphenidate take 1 a day 30tabs F90.9 Cyndi Roth, 03/20/2019 Hydrochloride ER in the am N.P. 36mg Tablets ER Orsythia take one 3months Cyndi Roth, 03/18/2014 0.1-20mg-mcg Tablets tablet by N.P. mouth daily History Medications Fluconazole one by mouth 2tabs Cyndi Roth, 05/09/2019 - 150mg Tablets may repeat in 3 N.P. 02/10/2019 days as needed Methylphenidate one by mouth 30tabs F90.9 Edna Kraft MD 03/20/2019 - Hydrochloride ER daily 03/20/2019 54mg Tablets ER Fluticasone Propionate 2 sprays each 48gm H92.02 Cyndi Roth, 2018 - nostril daily N.P. 03/31/2019 50mcg/Act Suspension as needed Immunizations CPT Code Status Date Vaccine Lot # [id number] Given 07/31/2016 Influ Virus Vaccine, Quadrivalent, Split Virus, [id number] [address] Given 07/27/2014 Influenza Virus Vaccine, Quadrivalent, Split, [id number] Preservative Free 91049 Given 07/31/2013 Flu Vaccine Split Virus Preservative Free For [id number] Indiv 3Yr Older [id number] Given 07/29/2012 Fluzone Vaccine [id number] 80504 Given 07/27/2011 Influenza Virus 3Yrs & Over [id number] 20299 Given 10/20/2010 Influenza Virus 3Yrs & Over Vital Signs Date Vital Result Comment 06/12/2019 9:29am Height 62.75 inches 5'2.75" Weight 112.00 lb Heart Rate 86 /min BP Systolic 114 mmHg BP Diastolic 80 mmHg O2 % BldC Oximetry 99 % BMI (Body Mass Index) 20.0 kg/m2 05/17/2019 3:39pm Height 62.75 inches 5'2.75" Weight 115.00 lb Heart Rate 88 /min BP Systolic 109 mmHg BP Diastolic 78 mmHg O2 % BldC Oximetry 98 % BMI (Body Mass Index) 20.5 kg/m2 Results Test Date Facility Test Result H/L Range Note Laboratory test [facility] Magnesium 2.3 mg/dL Normal 1.9-2.7 finding [address] [place] [address] [phone] Laboratory test [facility] D Dimer < 200 Normal Less Than 1 finding [address] Quantitative ng/mL 230 [place] [address] [phone] Troponin-I (TnI) 0.00 ng/mL <0.04 2 CBC Auto 02/19/2019 [facility] White Blood 4.1 10^3/uL Normal 3.5-10.[address] [place] [address] [phone] Red Blood Count 4.44 10^6/uL Normal 3.70-4.87 [...] Blood Cells % 0.1 Laboratory test 02/19/2019 [facility] Lactic Acid 0.9 mmol/L Normal 0.5-2.0 3 finding [address] [place] [address] [phone] B-Type Natriuretic Peptide BNP 33 pg/mL <=100 Comp Metabolic 02/19/2019 [facility] Sodium 138 mmol/L Normal 135-145 Panel [address] [place] [address] [phone] Potassium 3.9 mmol/L Normal 3.5-5.0 Chloride 106 [...] Egfr 90.2 >60 4 Laboratory test 02/19/2019 [facility] Creatine 130 U/L Normal 10-[address] Kinase(CK) [place] [address] [phone] Troponin-I (TnI) 0.00 ng/mL <0.04 5 CKMB 02/19/2019 [facility] CKMB ng/mL 1.0 ng/mL Normal 0.6- 6.[address] [place] [address] [phone] Laboratory test 02/19/2019 [facility] HCG < 0.60 [address] mIU/[place] [address] [phone] Digoxin < 0.3 ng/ml Low 0.8-2.0 TSH [...] immediately to secondary confirmatory testing. Using the [employer] DxI 800 Access Immunoassay systems, the 99th percentile upper reference limit was demonstrated to be < 0.03 ng/mL. 3 [facility] Severe Sepsis and Septic Shock Management Bundle [...] immediately to secondary confirmatory testing. Using the [employer] DxI 800 Access Immunoassay systems, the 99th percentile upper reference limit was demonstrated to be < 0.03 ng/mL. 6 <5.0 Negative 5.0 - 25.0 Indeterminate (Repeat testing recommended after 72 hours) >25.0 Positive Perimenopausal women can display HCG levels of up to 20 mIU/mL Procedures Date Code Description Status 05/30/2014 [id number] Diabetic Retinal Eye Exam Completed Medical Devices Description No Information Available Encounters Type Date Location Provider Dx Diagnosis Office Visit 05/17/2019 [facility] Internal Theo Gomez, G44.209 Tension-type 3:40p Medicine - Ccmob MANUFACTURING MECHANIC headache, unspecified, not intractable R11.0 Nausea F90.9 Attention-deficit hyperactivity disorder, unspecified type Office Visit 05/03/2019 2:00p [facility] Internal Theo Gomez, G44.209 Tension -type Medicine - MANUFACTURING MECHANIC headache, Ccmob unspecified, not intractable R11.0 Nausea F90.9 Attention-deficit hyperactivity disorder, unspecified type Office Visit 03/31/2019 10:40a [facility] Internal Cyndi Roth, M94.0 Chondrocostal Medicine - N.P. junction syndrome Ccmob [Tietze] M54.6 Pain in thoracic spine Office Visit 03/07/2019 11:40a [facility] Internal Medicine Cyndi Roth N.P. R51 Headache - Ccmob M94.0 Chondrocostal junction syndrome [Tietze] Office Visit 02/03/2019 10:00a [facility] Internal Cyndi Roth, H92.02 Otalgia , left Medicine - Ccmob N.P. ear G44.209 Tension-type headache, unspecified, not intractable Assessments Date Code Description Provider 05/17/2019 G44.209 Tension-type headache, unspecified, not Zsofia Jason, MANUFACTURING MECHANIC intractable 05/17/2019 R11.0 Nausea Zsofia Jason, MANUFACTURING MECHANIC 05/17/2019 F90.9 Attention-deficit hyperactivity disorder, Zsofia Jason, MANUFACTURING MECHANIC unspecified type 05/03/2019 G44.209 Tension-type headache, unspecified, not Zsofia Jason, MANUFACTURING MECHANIC intractable 05/03/2019 R11.0 Nausea Zsofia Jason, MANUFACTURING MECHANIC 05/03/2019 F90.9 Attention-deficit hyperactivity disorder, Zsofia Jason, MANUFACTURING MECHANIC unspecified type 03/31/2019 M94.0 Chondrocostal junction syndrome [Tietze] Cyndi Gutierrezn, N.P. 03/31/2019 M54.6 Pain in thoracic spine Cyndi Gutierrezn, N.P. 03/07/2019 R51 Headache Cyndi Varn, N.P. 03/07/2019 M94.0 Chondrocostal junction syndrome [Tietze] Cyndi Varn, N.P. 02/03/2019 H92.02 Otalgia, left ear Cyndi Varn, N.P. 02/03/2019 G44.209 Tension-type headache, unspecified, not Cyndi Varn, N.P. intractable Plan of Treatment No Information Available Functional Status Description No Information Available Mental Status Description No Information Available Referrals Refer to Reason for Referral Status Appt Date Jovanna Dejesus NP Patient with recurring abdominal pain desires to Sent see GI specialist. Referred for evaluation and treatment. Thank you for seeing this pleasant patient. [address] [place] [id number] [phone] Anne Farah, Patient with costochondritis, left ear pain, and Sent headaches. Referred for evaluation and treatment. [address] [facility] [address] [place], [place] [id number] [phone]
[2019-07-15 09:56] VITALS: BP 128/87
[2019-07-15] MEDS ORDERED: Ibuprofen TAB* 600 MG PO ONE (10:16)
--- NOTE | 2019-07-15 10:19 | UC ---
Cardiac HPI - HPI Summary HPI Summary: Patient is a 29-year-old female here with left-sided chest pain. Patient developed left-sided chest pain last night while watching [employer]. Patient's pain is located on her lateral left chest wall and is worse when her brought is pushing on her skin. Patient has no shortness of breath, diaphoresis, nausea, family history of [place], history of blood clots, recent immobilization, unilateral leg pain, unilateral leg swelling. Patient does take control pills. Patient does not smoke cigarettes. Patient had a similar episode one week ago that lasted a couple of hours. Medications reviewed - History of Current Complaint Chief Complaint: UCGeneralIllness Stated Complaint: SHARP PAINS UNDER L BRA LINE Time Seen by Provider: 07/15/19 09:59 Hx Obtained From: Patient Hx Last Menstrual Period: 06/28/19 Pain Intensity: 5 - Allergy/Home Medications Allergies/Adverse Reactions: Allergies Allergy/AdvReac Type Severity Reaction Status Date / Time ketorolac [From Toradol] AdvReac dizziness Verified 07/15/19 09:56 and made her "pale" PMH/Surg Hx/FS Hx/Imm Hx Previously Healthy: Yes - Surgical History Surgical History: None - Family History Known Family History: Positive: Hypertension, Other - HLD, Non-Contributory - Social History Alcohol Use: Daily Alcohol Amount: 1 glass of wine with dinner Substance Use Type: None Smoking Status (MU): Never Smoked Tobacco Review of Systems All Other Systems Reviewed And Are Negative: Yes Constitutional: Negative: Fever, Chills ENT: Negative: Sore Throat Respiratory: Negative: Shortness Of Breath, Cough Cardiovascular: Positive: Chest Pain. Negative: Palpitations Gastrointestinal: Negative: Abdominal Pain, Vomiting, Diarrhea Genitourinary: Negative: Hematuria, Frequency Physical Exam - Summary Physical Exam Summary: Vital Signs Reviewed: Yes A+Ox3, no distress Eyes: Conjunctiva Clear, PERRL. EOM intact and full ENT: Hearing grossly normal TM x 2 clear, moist, uvula midline, no exudate, no erythema Neck: Positive: Supple Respiratory: Positive: No respiratory distress, No accessory muscle use + CTA throughout no w/r Cardiovascular: RRR nl s1, s2 no m/r CBT <2 sec. chest wall tenderness over the left chest wall in the midaxillary line. No deformity, thrombosed veins, erythema, fluctuance. abd soft + BS nt/nd no guarding, no distension Musculoskeletal Exam: ALEJANDRO x 4 without difficulty Strength Intact, ROM Intact Neurological: Positive: Alert, + sensation throughout Psychological: Positive: Normal Response To Family Skin: no rash, no ecchymosis Vital Signs: Initial Vital Signs Temp 97.6 F 07/15/19 09:52 Pulse 93 07/15/19 09:52 Resp 17 07/15/19 09:52 BP 128/87 07/15/19 09:52 Pulse Ox 100 07/15/19 09:52 Diagnostics - EKG Cardiac Rate: NL Cardiac Rhythm: Sinus: Normal Ectopy: None ST Segment: Normal Summary of EKG Findings: Normal sinus rhythm. ME interval is slightly shortened with no delta waves Re-Evaluation - Re-Evaluation 1 Re-Evaluation Time: 10:36 Change: Unchanged Comment: Patient has decided she does not want to the ED. We will get a chest x -ray and UA to assess for any causes. - Assessment/Plan Course Of Treatment: Patient is here with left-sided chest wall pain that started wall she was sitting. Patient has no risk factors for ACS normal EKG here. Patient's only PE risk factor is being on control pills. Patient does have tenderness in her chest wall and her pain is worse movement. Patient is likely suffering from chest wall strain. However, given patient's history, patient was encouraged to go to the emerged from. Patient declined multiple times. A basic workup was performed here including a negative chest x-ray, negative UA, and negative EKG. Patient was encouraged to go to the emergency department if she was feeling any worse. - Clinical Impression Provider Diagnosis: Chest wall pain Discharge ED - Sign-Out/Discharge Documenting (check all that apply): Patient Departure All imaging exams completed and their final reports reviewed: Yes - Discharge Plan Condition: Stable Disposition: HOME Patient Education Materials: Chest Pain (ED) Referrals: Cyndi Roth NP [Primary Care Provider] - Additional Instructions: You can take 600 mg of ibuprofen every 6 hours as needed for pain. Do not do this for more than 4 days. Please use a heat pack on your ribs where they hurt. Please go straight to the emergency department if you have worsening pain, shortness of breath, any other concerning symptoms - Billing Disposition and Condition Condition: STABLE Disposition: Home
== END 2019-07-15 11:30 | disposition home or self-care (01) ==
LOC: UCEAST 09:41
DX: R07.89 Other chest pain (principal); Z88.5 Allergy status to narcotic agent
CPT/HCPCS: 71046; 81003; 84702; 87086; 93005; 99212; A9270-GY; G0463

== ENCOUNTER 2019-08-30 08:32 | Emergency (ER) | payer OTHER ==
[2019-08-30 08:42] VITALS: BP 108/73
[2019-08-30] MEDS ORDERED: Tetan/Diph/Pertus SYR(Tdap)* 0.5 ML SYR(BOOSTRIX) use SYR contains LATEX IM ONE (09:48)
--- NOTE | 2019-08-30 09:52 | UC ---
Skin Complaint HPI - HPI Summary HPI Summary: 29-year-old woman comes in with a chief complaint of laceration to the left index finger. This occurred yesterday about 13 hours ago with a serrated knife while cleaning a knife in the kitchen in soapy water. The laceration bled quite a bit the patient clean that out. She stopped that leading with direct pressure. Does have a lot of pain in the finger and pain with range of motion. At this time due to the pain she is not able to flex at all away. No decreased sensation. She's not sure when she last had a tetanus shot. - History of Current Complaint Chief Complaint: UCLaceration Time Seen by Provider: 08/30/19 09:39 Stated Complaint: FINGER LAC Hx Last Menstrual Period: 08/27/19 Pain Intensity: 4 - Allergy/Home Medications Allergies/Adverse Reactions: Allergies Allergy/AdvReac Type Severity Reaction Status Date / Time ketorolac [From Toradol] AdvReac dizziness Verified 08/30/19 08:42 and made her "pale" Home Medications: Home Medications Fluticasone DISKUS 250 MCG(NF) [Flovent Diskus 250 MCG(NF)] 1 puff INH DAILY [History Confirmed 08/30/19] PMH/Surg Hx/FS Hx/Imm Hx Previously Healthy: Yes Other Psychological History: adhd - Surgical History Surgical History: None - Family History Known Family History: Positive: Hypertension, Other - HLD, Non-Contributory - Social History Alcohol Use: Daily Alcohol Amount: 1 glass of wine with dinner Substance Use Type: None Smoking Status (MU): Never Smoked Tobacco - Immunization History Most Recent Tetanus Shot: unknown Review of Systems All Other Systems Reviewed And Are Negative: Yes Constitutional: Positive: Negative Skin: Positive: Other - see hpi Eyes: Positive: Negative ENT: Positive: Negative Respiratory: Positive: Negative Cardiovascular: Positive: Negative Gastrointestinal: Positive: Negative Motor: Positive: Other - see hpi Neurovascular: Positive: Negative Musculoskeletal: Positive: Other: - see hpi Neurological: Positive: Negative Psychological: Positive: Negative Is Patient Immunocompromised?: No Physical Exam Triage Information Reviewed: Yes Appearance: Well-Appearing, Well-Nourished, Pain Distress - mild with rom and exam of lt index finger Vital Signs: Initial Vital Signs Temp 98.2 F 08/30/19 08:38 Pulse 79 08/30/19 08:38 Resp 18 08/30/19 08:38 BP 108/73 08/30/19 08:38 Pulse Ox 100 08/30/19 08:38 Vital Signs Reviewed: Yes Eye Exam: Normal Eyes: Positive: Conjunctiva Clear Neck: Positive: Supple Respiratory: Positive: No respiratory distress Musculoskeletal: Positive: Other: - Left index finger has normal strength in all ranges of motion. Patient cannot flex the finger completely to make a fist apparently secondary to pain. Neurological: Positive: Alert Psychological: Positive: Age Appropriate Behavior Skin: Positive: Other - 1.5 cm flap laceration on the radial aspect of the left index finger just distal to the PIP. No active bleeding no drainage no streaking. Normal capillary refill. Course/Dx - Course Course Of Treatment: Patient received T tap here in clinic. Wound was cleaned and dressed by nursing. A finger splint was placed by nursing patient and her vascular intact after placement of the finger splint. At this time it appears the range of motion is limited secondary to pain. However I let the patient know that if she continued to not be able to have full range of motion she needs to follow up with orthopedic hand specialist. At this time there is no sign of infection. I did write a prescription for Keflex to be used at the first sign of any infection if needed. - Diagnoses Provider Diagnosis: Laceration of left index finger Discharge ED - Sign-Out/Discharge Documenting (check all that apply): Patient Departure All imaging exams completed and their final reports reviewed: No Studies - Discharge Plan Condition: Stable Disposition: HOME Prescriptions: Cephalexin CAP* [Keflex CAP*] 500 mg PO TID #21 cap Patient Education Materials: Finger Laceration (ED) Referrals: Cyndi Roth NP [Primary Care Provider] - Juliana Cerrato MD [Medical Doctor] - Additional Instructions: FOLLOW UP WITH THE ORTHOPEDIC HAND SPECIALIST IF NOT COMPLETELY IMPROVED; WEAKNESS, NUMBNESS, SIGNS OF INFECTION, INCOMPLETE RANGE OF MOTION. START THE ANTIBIOTIC IF THERE ARE ANY SIGNS OF INFECTION. YOU HAD THE TDAP (TETANUS/DIPTHERIA/PERTUSSIS) IMMUNIZATION TODAY. GET REEVALUATED SOONER IF NOT IMPROVED OR WORSE OR ANY QUESTIONS OR CONCERNS. - Billing Disposition and Condition Condition: STABLE Disposition: Home
== END 2019-08-30 10:09 | disposition home or self-care (01) ==
LOC: UCEAST 08:32
DX: S61.211A Laceration without foreign body of left index finger without damage to nail, initial encounter (principal); F90.9 Attention-deficit hyperactivity disorder, unspecified type; Z23 Encounter for immunization; Z88.6 Allergy status to analgesic agent; W26.0XXA Contact with knife, initial encounter; Y93.G1 Activity, food preparation and clean up; Y92.89 Other specified places as the place of occurrence of the external cause
CPT/HCPCS: 90715; 99213; G0463